=== PATIENT | male | born 1970 | race Caucasian/White ===

== ENCOUNTER 2016-04-29 00:59 | Emergency (ER) | payer SELFPAY ==
[~2016-04-29] VITALS: Ht 167.6 cm; Wt 90.5 kg
[~2016-04-29 00:59] MED LIST: NOHOMEMEDS
[2016-04-29 02:29] VITALS: BP 139/79
== END 2016-04-29 02:33 | disposition home or self-care (01) ==
LOC: EME 00:59 → RME 00:59
DX: S93.402A Sprain of unspecified ligament of left ankle, initial encounter (principal); W10.8XXA Fall (on) (from) other stairs and steps, initial encounter
CPT/HCPCS: 73610; 99281; 99283